=== PATIENT | male | born 1975 | race Caucasian/White ===

== ENCOUNTER 2018-04-24 22:04 | Emergency (ER) | payer MEDICAID, OTHER ==
[2018-04-24 22:16] VITALS: BP 145/94; PULSE 126; RESP 16; TEMP 98.8; O2SAT 100
--- NOTE | 2018-04-24 22:59 | ED PDOC ---
HPI: General Adult Time Seen by Provider: 04/24/18 22:59 Chief Complaint (Nursing): GI Problem Chief Complaint (Provider): blood in stool, slip and fall History Per: Patient Additional Complaint(s): 42-year-old male with history of HIV presents to emergency department with rectal pain and bleeding. Patient states he was in the shower when he slipped and fell injuring buttocks region. Patient believes that he passed out for 2-3 minutes. Patient states for the past 12 hours prior to falling he has had diarrhea with blood in stool. 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 He states that he is due for another surgery next month. Patient came to ER this evening secondary to severe rectal pain. He states he was recently under the care of a senior painter but his insurance changed and he can no longer see this senior painter. Patient states he has been taking Advil and Tylenol which have not helped the pain. He denies head injury or LOC as a result of fall this evening. PMD: Dr. Roxanna Friedman Past Medical History Reviewed: Historical Data, Nursing Documentation, Vital Signs Vital Signs: Last Vital Signs Temp 98.8 F 04/24/18 22:13 Pulse 126 H 04/24/18 22:13 Resp 16 04/24/18 22:13 BP 145/94 H 04/24/18 22:13 Pulse Ox 100 04/24/18 22:59 - Medical History PMH: Anxiety, Depression, HIV, HTN, Migraine - Surgical History Other surgeries: rectal surgery x 7 for removal of genital warts - Family History Family History: States: No Known Family Hx - Living Arrangements Living Arrangements: With Family - Social History Current smoker - smoking cessation education provided: No Alcohol: None Drugs: Denies - Home Medications Home Medications: Ambulatory Orders Medication Instructions Recorded Escitalopram [Lexapro] 20 mg PO DAILY 07/02/16 Omeprazole Magnesium [Prilosec Otc] 40 mg PO DAILY 07/02/16 Oxycodone HCl [Oxycontin] 40 mg PO BID 07/02/16 oxyCODONE [oxyCODONE Immediate 5 mg PO BID PRN 01/14/17 Release Tab] - Allergies Allergies/Adverse Reactions: Allergies Allergy/AdvReac Type Severity Reaction Status Date / Time gabapentin Allergy Severe shaking Verified 01/14/17 09:32 topiramate [From Topamax] Allergy Severe ITCHING Verified 01/14/17 09:32 ketorolac tromethamine Allergy ITCHING Verified 01/14/17 09:32 [From Toradol] pregabalin [From Lyrica] AdvReac Severe ITCHING Verified 01/14/17 09:32 sumatriptan [From Imitrex] AdvReac RASH Verified 04/24/18 22:13 sumatriptan succinate AdvReac shaking' Verified 01/14/17 09:32 [From Imitrex] theophylline AdvReac ITCHING Verified 01/14/17 09:32 Bitral Allergy RASH Uncoded 04/24/18 22:13 Review of Systems ROS Statement: Except As Marked, All Systems Reviewed And Found Negative Constitutional: Negative for: Fever, Chills Gastrointestinal: Positive for: Diarrhea, Rectal Pain (and bleeding). Negative for: Vomiting, Abdominal Pain Genitourinary Male: Negative for: Dysuria Neurological: Negative for: Headache, Dizziness Physical Exam - Reviewed Nursing Documentation Reviewed: Yes Vital Signs Reviewed: Yes - Physical Exam Appears: Positive for: Well, Non-toxic, No Acute Distress Head Exam: Positive for: ATRAUMATIC, NORMAL INSPECTION Skin: Positive for: Normal Color. Negative for: Rash Eye Exam: Positive for: Normal appearance Cardiovascular/Chest: Positive for: Regular Rate, Rhythm Respiratory: Positive for: Normal Breath Sounds Gastrointestinal/Abdominal: Positive for: Soft. Negative for: Tenderness, Distended, Guarding, Rebound Rectal: Positive for: Other (patient refused rectal exam) Extremity: Positive for: Normal ROM Neurologic/Psych: Positive for: Alert, Oriented - ECG O2 Sat by Pulse Oximetry: 100 Pulse Ox Interpretation: Normal Medical Decision Making Medical Decision Makin-year-old male with rectal bleeding and rectal pain. Patient refused rectal exam. He was offered tramadol for pain but he declined. He states he needs IV pain medication. Patient states he is allergic to Toradol. Patient also reports that Motrin and Tylenol have not helped. Patient refused any further testing unless he received IV pain medication and only dilaudid works for him. Patient was made aware of non-narcotic pain management policy in this ED. [place] rx report history was reviewed, patient has extensive history of recently filled narcotic pain medications including oxycodone and Dilaudid. Patient informed loan underwriter that if he does not get any IV pain meds he will leave. Patient was informed that he will need to sign out AGAINST MEDICAL ADVICE. The risks and dangers of signing out AGAINST MEDICAL ADVICE were discussed with patient and include but are not limited to worsening of current condition, possible . Patient verbalized understanding of these risks and dangers and still wishes to leave. Patient is capable and competent making this decision. He was instructed to follow up as soon as possible with primary doctor and with pain management. Disposition - Clinical Impression Clinical Impression: Rectal pain, Left against medical advice - Patient ED Disposition Is Patient to be Admitted: No - Disposition Disposition: Against Medical Advice Disposition Time: 23:34 Condition: UNKNOWN Additional Instructions: Follow up [facility] with your primary care doctor. Instructions: Leaving Against Medical Advice, Bloody Stools Forms: [place] ([place])
== END 2018-04-24 23:51 | disposition left against medical advice (07) ==
LOC: H.ER 22:04
DX: K62.89 Other specified diseases of anus and rectum (principal); W01.0XXA Fall on same level from slipping, tripping and stumbling without subsequent striking against object, initial encounter; Y92.002 Bathroom of unspecified non-institutional (private) residence as the place of occurrence of the external cause; B20 Human immunodeficiency virus [HIV] disease